=== PATIENT | female | born 1975 | race Caucasian/White ===

== ENCOUNTER 2021-03-03 08:42 | Emergency (ER) | payer MEDICARE, MEDICAID, SELFPAY ==
--- NOTE | ~2021-03-03 | CT_ITS ---
EXAMINATION: CT brain wo con, CT facial bones wo con EXAM DATE: 03/03/2021 09:52 INDICATION: Seizure, head injury. Left eye bruising. TECHNIQUE: Spiral CT of the head was performed without contrast. Axial, coronal and sagittal images were reviewed. Spiral CT of the facial bones was performed without contrast. Axial images were revie wed. Coronal and sagittal reformatted images were also reviewed. The dose-length product (DLP) for this examination was 529.67 (accession [id number]), 270.87 (accession [id number]) mGy-cm. Th e exposure was tailored according to patient size, and iterative reconstruction (ASIR) was used as ad ditional dose reduction technique. There is no prior study for comparison. FINDINGS: HEAD CT: There is no acute intraparenchymal hemorrhage. No evidence of intraparenchymal brain mass l esion. No evidence of acute infarction. There is no mass effect or midline shift. There is no obstru ctive hydrocephalus suspected. There are no extra-axial collections. There are no calvarial acute f ractures. FACIAL CT: There are no displaced acute nasal bone fractures. The mandible, sinuses and orbits are i ntact. The orbits, globes and extraocular muscles are unremarkable. Soft tissue is unremarkable. The visualized sinuses and mastoid air cells are well aerated. C3-4 has severe left-sided facet a rthritis. IMPRESSION: 1. No acute intracranial findings. 2. No acute facial fracture. Reviewed, dictated and finalized at location A. IMPRESSION: 1. No acute intracranial findings. 2. No acute facial fracture.
[2021-03-03 08:43] VITALS: BP 145/73; PULSE 75; RESP 14; TEMP 36.7; O2SAT 99
[2021-03-03 08:45] VITALS: O2SAT 98
--- NOTE | 2021-03-03 08:48 | ECG_ITS ---
Measurements Intervals [place] Rate: 73 P: 49 WV: 158 QRS: 53 QRSD: 75 T: 57 QT: 394 QTc: 435 Interpretive Statements SINUS RHYTHM NORMAL ECG Electronically Signed On 03-03-2021 12:29:21 CDT by Jerrell Yates D.O.
--- NOTE | 2021-03-03 09:25 | ED.GENADULT ---
HPI - General Adult General Chief complaint: Seizure Stated complaint: UNRESPONSIVE Time Seen by Provider: 03/03/21 08:53 Source: patient, EMS and RN notes reviewed Mode of arrival: EMS History of Present Illness HPI narrative: Patient is 45 years old white female [facility] for possible [facility]. The prison staff noticed that the patient have some twitches and was unresponsive, ambulance arrived and patient was lethargic, slowly answering question. History of seizure on Dilantin, last seizure was February 13, 2021, did not come to the hospital at that time. History of depression and seizure. Patient denies any fever, chills, nausea, vomiting, diarrhea, constipation, abdominal pain, chest pain, shortness of breath, headache or back pain. Patient been vaccinated for COVID-19 months ago. Related Data Allergies Allergy/AdvReac Type Severity Reaction Status Date / Time adhesive Allergy Rash Verified 03/03/21 11:05 codeine Allergy Unknown Verified 03/03/21 11:05 fentanyl Allergy Nausea Verified 03/03/21 11:05 metoclopramide Allergy Unknown Verified 03/03/21 11:05 mirtazapine Allergy Unresponsiv Verified 03/03/21 11:05 e morphine Allergy Unknown Verified 03/03/21 11:05 oxycodone Allergy Unknown Verified 03/03/21 11:05 Review of Systems Review of Systems: Narrative: CONSTITUTIONAL: Denies fever, chills, or sweats. EYES: Denies visual changes, redness, or discharge. ENT: Denies rhinorrhea, congestion, sore throat, or otalgia. CARDIOVASCULAR: Denies chest pain, palpitations, or edema. RESPIRATORY: Denies cough or dyspnea. GASTROINTESTINAL: Denies abdominal pain, nausea, vomiting, or diarrhea. GENITOURINARY: Denies dysuria or hematuria. SKIN: Denies rash or itching. MUSCULOSKELETAL: Denies back pain, joint pain, or myalgia. NEUROLOGIC: Denies headache, numbness, or weakness. PSYCHIATRIC: Denies anxiety or depression. Exam Narrative: Exam Narrative: General appearance: Well-developed, well-nourished Skin: Normal color Head: Normocephalic, nontraumatic Eyes: Clear conjunctiva ENT: Oropharynx normal, ears normal, nose normal Neck: Supple, nontender Chest and respiratory: Airway patent, no respiratory distress, no accessory muscle use, a port in place at right chest Heart: Regular rate/rhythm Abdomen: Soft, nontender, no organomegaly, quiet bowel sounds Vascular: Normal peripheral pulses, normal capillary refill. Musculoskeletal: Normal range of motion, nontender back Neurologic: Alert and oriented ?3, [employer]IST is normal as tested, no gross motor deficit Course Course Emergency Course: Stable, improving Vital Signs Vital signs: Vital Signs Temperature 36.7 C 03/03/21 08:43 Pulse Rate 75 03/03/21 08:43 Respiratory Rate 14 03/03/21 08:43 Blood Pressure 145/73 H 03/03/21 08:43 Pulse Oximetry 99 03/03/21 08:43 Temperature 36.7 C 03/03/21 08:43 Pulse Rate 75 03/03/21 08:43 Respiratory Rate 14 03/03/21 08:43 Blood Pressure 145/73 H 03/03/21 08:43 Pulse Oximetry 99 03/03/21 08:43 Medical Decision Making MDM Narrative Medical decision making narrative: Patient presents with seizure, postictal. Labs, CT head and facial bone ordered. Further plan to follow History of seizure and depression. Differential Diagnosis Differential Diagnosis: Depression, anxiety-like symptoms, recurrent seizure, noncompliance with medication. Vital Signs Vital Signs: Vital Signs Temperature 36.7 C 03/03/21 08:43 Pulse Rate 75 03/03/21 08:43 Respiratory Rate 14 03/03/21 08:43 Blood Pressure 145/73 H 03/03/21 08:43 Pulse Oximetry 99 03/03/21 08:43 Temperature 36.7 C 03/03/21 08:
[2021-03-03 09:59] LABS: Add Urine Microscopic? YES; Amorphous Sediment Urine Few; Appearance Urine Cloudy (Clear); Bilirubin Urine Negative (Negative); Blood Urine Negative (Negative); Color Urine Yellow (Yellow); Glucose Urine UA Negative (Negative); Ketones Urine Negative (Negative); Leukocyte Esterase Ur Negative LEU/UL (Negative); Mucus Urine Rare /lpf; Nitrate Urine Negative (Negative); Protein Urine Negative (Negative); Specific Grav Ur 1.018 (1.001-1.035); Squamous Epithelial Cell Urine Rare /hpf (Few); Urobilinogen Urine Negative mg/dL (<2.0)
[2021-03-03 10:28] LABS: Basophils Absolute Auto 0.1 K/mm3 (0.0-0.1); Basophils Percent Auto 1.1 % (0.2-1.2); Eosinophils Percent Auto 0.4 % (0-4.4); Hematocrit 39.9 % (37.0-47.0); Hemoglobin 13.2 g/dL (12.0-15.0); Immature Granulocyte Absolute 0.01 K/mm3 (0.00-0.031); Immature Granulocyte Percent A 0.2 % (0-0.5); Lymphocytes Absolute Auto 1.45 K/mm3 (0.9-3.2); Lymphocytes Percent Auto 30.8 % (18.3-44.2); Mean Corpuscular HGB Conc 33.1 g/dl (32-36); Mean Corpuscular Hemoglobin 32.4 pg (26-34); Mean Platelet Volume 9.7 fl (7.4-10.4); Monocytes Absolute Auto 0.4 K/mm3 (0.1-0.6); Monocytes Percent Auto 9.3 % (2.6-8.5); Neutrophils Absolute Auto 2.7 K/mm3 (1.3-6.7); Neutrophils Percent Auto 58.2 % (45.5-73.1); Platelet Count Result 196 k/mm3 (150-375); Red Blood Count 4.07 M/mm3 (4.2-5.4); Red Cell Distribution Width 12.8 % (11.5-14.5); White Blood Count 4.7 K/mm3 (4.5-10.0)
[2021-03-03 10:41] LABS: Phenytoin Dilantin 5 ug/mL (10-20)
[2021-03-03 11:01] LABS: Amphetamine Screen Urine Negative (Negative); Barbiturate Screen Urine Negative (Negative); Benzodiazepines Screen Urine Negative (Negative); Cannabinoid Screen Urine Negative (Negative); Cocaine Screen Urine Negative (Negative); Methadone Screen Urine Negative (Negative); Opiate Screen Urine Negative (Negative); Phencyclidine Screen Urine Negative (Negative)
[2021-03-03 12:22] VITALS: BP 91/47; PULSE 83; RESP 21; O2SAT 100
[2021-03-03] MEDS: HEPARIN SOD FLUSH 500 UNITS/5 ML SYRINGE (14:21)
[2021-03-03 14:26] VITALS: BP 125/65
--- NOTE | 2021-03-03 14:28 | PC.NURSE ---
This RN called and spoke with ZURI in regards to pts medication. Pt states that currently pt is not taking any anti seizure medication. Informed her that pt list that was sent over has it on that pt is taking anti seizure meds. ZURI laughed and states that the computer has 2 different meds list and we have the wrong one. asked if DR could prescribe her some. Informed her that pt was already discharged and on her way back to facility. ZURI states that ok it can wait until Saturday when our Dr comes in .
== END 2021-03-03 14:28 ==
PROVIDERS: Emergency Provider Emergency Medicine
DX: G40.909 Epilepsy, unspecified, not intractable, without status epilepticus (principal); Z91.14 Patient's other noncompliance with medication regimen
CPT/HCPCS: 36415; 51701; 70450; 70486; 80185; 80307; 81001; 81025; 85025; 93005; 96365; 99284; J1165